=== PATIENT | female | born 1960 | race African-American/Black ===

== ENCOUNTER 2017-02-08 16:33 | Emergency (ER) | payer OTHER ==
[2017-02-08 17:34] LABS: Bilirubin Negative (Negative); Blood, Urine Negative (Negative); Glucose, Urine (Dipstick) Negative (Negative); Leukocyte Trace (Negative); Nitrite Negative (Negative); Protein, Urine (Dipstick) 30 mg/dL (Neg-Trace); Specific Gravity, Urine 1.025 (1.005-1.030); Urobilinogen 0.2 mg/dL (0.2-1.0)
[2017-02-08 17:35] LABS: Clarity SL HAZY (Clear)
[2017-02-08 17:36] LABS: Pregnancy Test - Urine (BHCG) Negative (NEGATIVE); Pregu Control Background? CLEAR/WHITE (CLR/WHITE); Pregu Control Bar Appear? YES (CONTROL BAR); Specific Gravity 1.025 (1.002-1.036)
[2017-02-08] MEDS ORDERED: Ketorolac Tromethamine 30 MG/ML VIAL ONE (17:38)
[2017-02-08] MEDS ORDERED: Pantoprazole 40 MG VIAL ONE (17:38)
[2017-02-08 17:44] LABS: #Basophils 0.2 thou/uL (0.0-0.2); #Eosinphils 0.3 thou/uL (0.0-0.7); #Monocytes 0.6 thou/uL (0.11-0.59); #Neutrophils 4.1 thou/uL (1.40-6.50); %Basophils 2.3 % (0.0-1.0); %Eosinophils 3.7 % (0.0-10.0); %Lymphocytes 36.2 % (21.0-51.0); %Monocytes 7.8 % (0.0-10.0); %Neutrophils 50.1 % (42.0-75.0); Hemoglobin 12.7 g/dL (12.0-16.0); Mean Corpuscular Hemoglobin 29.3 pg (27.0-31.0); Mean Corpuscular Volume 94.3 fl (81.0-99.0); Mean Platelet Volume 9.9 fL (7.4-10.4); Platelet Count 241 thou/uL (130-400); RBC Distribution Width 13.5 % (11.5-14.5); Red Blood Cell (RBC) Count 4.34 mill/uL (4.20-5.40); White Blood Cell (WBC) Count 8.2 thou/uL (4.8-10.8)
[2017-02-08 17:54] LABS: Hyaline Casts/LPF 0-3 HYALINE CAST LPF (0-3 Hyaline); RBC/HPF 0-3 HPF (0-3); WBC/HPF 0-3 HPF (0-3)
[2017-02-08 18:00] LABS: ALT (SGPT) 53 U/L (8-55); AST (SGOT) 38 U/L (5-34); Albumin 4.5 g/dL (3.5-5.0); Alkaline Phosphatase 114 U/L (40-150); Anion Gap 16 mmol/L (10-20); BUN (Urea Nitrogen) 19 mg/dL (9.8-20.1); Bilirubin, Total 0.2 mg/dL (0.2-1.2); Calc. Creatinine Clearance 0 mL/min (70-130); Calcium 9.7 mg/dL (7.8-10.44); Carbon Dioxide 22 mmol/L (22-29); Chloride 101 mmol/L (98-107); Estimated GFR-MDRD 60; Globulin 3.6 g/dL (2.4-3.5); Glucose 115 mg/dL (70-105); Lipase 48 U/L (8-78); Potassium 3.4 mmol/L (3.5-5.1); Protein, Total 8.1 g/dL (6.0-8.3); Sodium 136 mmol/L (136-145)
== END 2017-02-08 18:34 | disposition home or self-care (01) ==
LOC: NAV ERS 16:33
DX: A08.4 Viral intestinal infection, unspecified (principal); K29.00 Acute gastritis without bleeding; E78.5 Hyperlipidemia, unspecified; E11.9 Type 2 diabetes mellitus without complications; I10 Essential (primary) hypertension; G43.909 Migraine, unspecified, not intractable, without status migrainosus; F41.9 Anxiety disorder, unspecified; F32.9 Major depressive disorder, single episode, unspecified; Z79.84 Long term (current) use of oral hypoglycemic drugs; Z79.899 Other long term (current) drug therapy
CPT/HCPCS: 80053; 81003; 81015; 81025; 82150; 83690; 85025; 96374; 96375; C9113; J1885

== ENCOUNTER 2017-03-11 17:05 | Emergency (ER) | payer OTHER ==
[2017-03-11] MEDS ORDERED: Acetaminophen/Codeine 30-300mg Tablet ONE (18:04)
== END 2017-03-11 18:30 | disposition home or self-care (01) ==
LOC: NAV ERS 17:05
DX: G57.91 Unspecified mononeuropathy of right lower limb (principal); F41.9 Anxiety disorder, unspecified; E78.5 Hyperlipidemia, unspecified; E11.9 Type 2 diabetes mellitus without complications; I10 Essential (primary) hypertension; G43.909 Migraine, unspecified, not intractable, without status migrainosus; F32.9 Major depressive disorder, single episode, unspecified; Z79.84 Long term (current) use of oral hypoglycemic drugs; Z79.82 Long term (current) use of aspirin; Z79.891 Long term (current) use of opiate analgesic; Z79.899 Other long term (current) drug therapy
CPT/HCPCS: 99283

== ENCOUNTER 2017-04-05 21:43 | Emergency (ER) | payer OTHER ==
[2017-04-05] MEDS ORDERED: Lidocaine Viscous Sol 2% 15 ml UD Cup ONE (22:13)
[2017-04-05] MEDS ORDERED: Mag-Al Plus 1200 MG/1200 MG/120 MG/30 ML UDCUP ONE (22:13)
[2017-04-05 22:36] LABS: #Basophils 0.1 thou/uL (0.0-0.2); #Eosinphils 0.3 thou/uL (0.0-0.7); #Lymphocytes 3.4 thou/uL (1.20-3.40); #Monocytes 0.7 thou/uL (0.11-0.59); #Neutrophils 3.6 thou/uL (1.40-6.50); %Basophils 1.5 % (0.0-1.0); %Eosinophils 3.7 % (0.0-10.0); %Lymphocytes 42.5 % (21.0-51.0); %Monocytes 8.4 % (0.0-10.0); Hemoglobin 12.2 g/dL (12.0-16.0); Mean Corpuscular Hemoglobin 29.8 pg (27.0-31.0); Mean Corpuscular Volume 90.5 fl (81.0-99.0); Mean Platelet Volume 9.9 fL (7.4-10.4); Platelet Count 216 thou/uL (130-400); White Blood Cell (WBC) Count 8.1 thou/uL (4.8-10.8)
[2017-04-05 22:54] LABS: CKMB 0.8 ng/mL (0-6.6); Troponin I Less than 0.010 ng/mL (< 0.028)
[2017-04-05 22:55] LABS: Bilirubin Negative (Negative); Blood, Urine Negative (Negative); Clarity Clear (Clear); Glucose, Urine (Dipstick) Negative (Negative); Leukocyte Small (Negative); Nitrite Negative (Negative); Protein, Urine (Dipstick) Negative (Neg-Trace); pH, Urine 6.5 (5.0-9.0)
[2017-04-05 22:55] LABS: ALT (SGPT) 14 U/L (8-55); AST (SGOT) 20 U/L (5-34); Albumin 4.3 g/dL (3.5-5.0); Alkaline Phosphatase 152 U/L (40-150); Anion Gap 14 mmol/L (10-20); BUN (Urea Nitrogen) 18 mg/dL (9.8-20.1); Bilirubin, Total 0.2 mg/dL (0.2-1.2); CK (CPK) 145 U/L (29-168); Calc. Creatinine Clearance 0 mL/min (70-130); Calcium 9.6 mg/dL (7.8-10.44); Carbon Dioxide 28 mmol/L (22-29); Chloride 99 mmol/L (98-107); Estimated GFR-MDRD 75; Globulin 4.1 g/dL (2.4-3.5); Glucose 98 mg/dL (70-105); Lipase 97 U/L (8-78); Potassium 3.3 mmol/L (3.5-5.1); Protein, Total 8.4 g/dL (6.0-8.3); Sodium 138 mmol/L (136-145)
[2017-04-05 22:57] LABS: Bacteria/HPF Rare-Few HPF (None Seen); RBC/HPF None Seen HPF (0-3); Squamous Epithelial 0-3 HPF (0-3); WBC/HPF 0-3 HPF (0-3)
[2017-04-05] MEDS ORDERED: traMADol HCl 50 MG TAB ONE (23:27)
[2017-04-05] MEDS ORDERED: HYDROcodone/Acetaminophen 5/325 mg Tablet ONE (23:31)
== END 2017-04-05 23:38 | disposition home or self-care (01) ==
LOC: NAV ERS 21:43
DX: R10.11 Right upper quadrant pain (principal); R10.13 Epigastric pain; E78.5 Hyperlipidemia, unspecified; E11.9 Type 2 diabetes mellitus without complications; I10 Essential (primary) hypertension; G62.9 Polyneuropathy, unspecified; F32.9 Major depressive disorder, single episode, unspecified; F41.9 Anxiety disorder, unspecified; Z79.84 Long term (current) use of oral hypoglycemic drugs; Z79.891 Long term (current) use of opiate analgesic; Z79.82 Long term (current) use of aspirin; Z79.899 Other long term (current) drug therapy
CPT/HCPCS: 36415; 80053; 81003; 81015; 82150; 82550; 82553; 83690; 84484; 85025; 93005

== ENCOUNTER 2017-05-09 13:57 | Emergency (ER) | payer OTHER | END 2017-05-09 14:28 | disposition home or self-care (01) | LOC: NAV ERS 13:57 | DX: E11.41 Type 2 diabetes mellitus with diabetic mononeuropathy (principal); G57.92 Unspecified mononeuropathy of left lower limb; I10 Essential (primary) hypertension; F32.9 Major depressive disorder, single episode, unspecified; F41.9 Anxiety disorder, unspecified; Z79.84 Long term (current) use of oral hypoglycemic drugs; Z79.82 Long term (current) use of aspirin; Z79.899 Other long term (current) drug therapy | CPT/HCPCS: 99283 ==

== ENCOUNTER 2017-05-27 15:20 | Emergency (ER) | payer OTHER ==
[2017-05-27] MEDS ORDERED: Dexamethasone 20 MG/5 ML VIAL ONE (15:34)
== END 2017-05-27 16:27 | disposition home or self-care (01) ==
LOC: NAV ERS 15:20
DX: J02.9 Acute pharyngitis, unspecified (principal); F41.9 Anxiety disorder, unspecified; F32.9 Major depressive disorder, single episode, unspecified; E78.5 Hyperlipidemia, unspecified; I10 Essential (primary) hypertension; G43.909 Migraine, unspecified, not intractable, without status migrainosus; E11.40 Type 2 diabetes mellitus with diabetic neuropathy, unspecified; Z79.84 Long term (current) use of oral hypoglycemic drugs; Z79.82 Long term (current) use of aspirin; Z79.899 Other long term (current) drug therapy
CPT/HCPCS: 87081; 87430; 99283; J1100

== ENCOUNTER 2017-11-30 15:49 | Emergency (ER) | payer OTHER ==
[2017-11-30] MEDS ORDERED: Ketorolac Tromethamine 60 MG/2 ML VIAL ONE (16:36)
[2017-11-30] MEDS ORDERED: Dexamethasone 20 MG/5 ML VIAL ONE (16:37)
== END 2017-11-30 17:00 | disposition home or self-care (01) ==
LOC: NAV ERS 15:49
DX: M54.41 Lumbago with sciatica, right side (principal); F41.9 Anxiety disorder, unspecified; F32.9 Major depressive disorder, single episode, unspecified; F20.9 Schizophrenia, unspecified; E11.40 Type 2 diabetes mellitus with diabetic neuropathy, unspecified; E78.5 Hyperlipidemia, unspecified; K21.9 Gastro-esophageal reflux disease without esophagitis; Z79.82 Long term (current) use of aspirin; Z79.899 Other long term (current) drug therapy
CPT/HCPCS: 96372; J1100; J1885

== ENCOUNTER 2019-10-26 16:08 | Emergency (ER) | payer OTHER ==
[~2019-10-26 16:08] MED LIST: Iopamidol 370 76% 100 ML VIAL ONE
[2019-10-26 17:28] LABS: #Basophils 0.1 thou/uL (0.0-0.2); #Eosinphils 0.3 thou/uL (0.0-0.7); #Lymphocytes 3.2 thou/uL (1.20-3.40); #Monocytes 0.7 thou/uL (0.11-0.59); #Neutrophils 3.2 thou/uL (1.40-6.50); %Basophils 1.3 % (0.0-1.0); %Eosinophils 3.9 % (0.0-10.0); %Lymphocytes 42.3 % (21.0-51.0); %Monocytes 9.4 % (0.0-10.0); Mean Corpuscular HGB CONC 31.1 g/dL (32.0-36.0); Mean Corpuscular Hemoglobin 29.3 pg (27.0-31.0); Mean Platelet Volume 9.7 fL (7.4-10.4); Platelet Count 229 thou/uL (130-400); Red Blood Cell (RBC) Count 4.09 mill/uL (4.20-5.40); White Blood Cell (WBC) Count 7.5 thou/uL (4.8-10.8)
[2019-10-26 17:36] LABS: INR-International Normal Ratio 1.1; PTT 34.6 SEC (22.9-36.1); Prothrombin Time 14.2 SEC (12.0-14.7)
[2019-10-26 17:45] LABS: ALT (SGPT) 13 U/L (8-55); AST (SGOT) 17 U/L (5-34); Albumin 4.2 g/dL (3.5-5.0); Alkaline Phosphatase 76 U/L (40-110); Anion Gap 14 mmol/L (10-20); BUN (Urea Nitrogen) 14 mg/dL (9.8-20.1); Bilirubin, Total 0.3 mg/dL (0.2-1.2); Calc. Creatinine Clearance 0 mL/min (70-130); Calcium 8.7 mg/dL (7.8-10.44); Carbon Dioxide 21 mmol/L (22-29); Chloride 106 mmol/L (98-107); Estimated GFR-MDRD 79; Glucose 104 mg/dL (70-105); Potassium 3.5 mmol/L (3.5-5.1); Protein, Total 7.2 g/dL (6.0-8.3); Sodium 137 mmol/L (136-145)
[2019-10-26] MEDS ORDERED: Sodium Chloride 0.9% 1,000 ML ONE (17:54)
--- NOTE | 2019-10-26 19:01 | CT ---
CT ABDOMEN AND PELVIS WITH IV CONTRAST: 10/26/19 HISTORY: Abdominal pain. Blood in stool. Comparison made to CT abdomen, 08/23/17. FINDINGS: Lung bases clear. Liver, spleen and pancreas unremarkable. Post cholecystectomy change. Adrenal glands and kidneys unre markable. Small bowel loops appear normal. Appendix unremarkable. Colon unremarkable. The left colon is nondist ended. Images through the pelvis show unremarkable uterus and adnexa. The urinary bladder shows mild bladde r wall thickening suggesting cystitis. No mass or adenopathy. IMPRESSION: 1. Mild urinary bladder wall thickening. Consider cystitis. 2. No acute process identified. POS: [facility]
== END 2019-10-26 19:30 | disposition home or self-care (01) ==
LOC: NAV ERS 16:08
DX: K92.2 Gastrointestinal hemorrhage, unspecified (principal); I10 Essential (primary) hypertension; I25.10 Atherosclerotic heart disease of native coronary artery without angina pectoris; F41.9 Anxiety disorder, unspecified; F32.9 Major depressive disorder, single episode, unspecified; F43.10 Post-traumatic stress disorder, unspecified; Z79.84 Long term (current) use of oral hypoglycemic drugs; Z79.82 Long term (current) use of aspirin; Z79.899 Other long term (current) drug therapy
CPT/HCPCS: 74177; 80053; 85025; 85610; 85730; 96360; J7050